=== PATIENT | female | born 1940 | race Caucasian/White ===

== ENCOUNTER 2017-04-16 09:39 | Outpatient (CLI) | payer MEDICARE | END 2017-04-16 09:40 | disposition home or self-care (01) | LOC: BICMAMMO 09:39 | PROVIDERS: ATTEND Obstetrics & Gynecology | DX: Z13.820 Encounter for screening for osteoporosis (principal); Z78.0 Asymptomatic menopausal state | CPT/HCPCS: 77080 ==

== ENCOUNTER 2017-08-23 10:13 | Emergency (ER) | payer MEDICARE ==
[2017-08-23] MEDS ORDERED: Ketorolac Tromethamine 60 MG/2 ML VIAL ONE (11:24)
== END 2017-08-23 11:50 | disposition home or self-care (01) ==
LOC: ERS 10:13
DX: M54.2 Cervicalgia (principal); E78.5 Hyperlipidemia, unspecified; I10 Essential (primary) hypertension; Z79.899 Other long term (current) drug therapy
CPT/HCPCS: 96372; J1885